=== PATIENT | female | born 1975 | race American Indian/Alaskan Native ===

== ENCOUNTER → 2017-11-08 14:55 | Emergency (ER) | payer SELFPAY | END | disposition left against medical advice (07) | LOC: ED 14:55 → MERGE 14:55 | DX: Z02.89 Encounter for other administrative examinations (principal); R10.9 Unspecified abdominal pain ==

== ENCOUNTER 2018-07-08 07:03 | Emergency (ER) | payer OTHER ==
[2018-07-08 07:31] VITALS: BMI 30.7
[2018-07-08 07:37] VITALS: RESP 18
[2018-07-08 07:38] VITALS: BP 122/81; PULSE 62; TEMP 98; O2SAT 100
--- NOTE | 2018-07-08 07:43 | ED PDOC ---
Arrival/HPI - General Historian: Patient - History of Present Illness Narrative History of Present Illness (Text): 07/08/18 07:36 43 year old f with a PMh of multiple pneumothorax (last 2013), anemia, endometriosis, and asthma presents to the emergency department complaining of s hortness of breath since yesterday with right greater than left chest and back pain. Patient recalls that this pain feel similar to the last time she was diagnosed with pneumothorax. Patient denies having a URI or any fevers, chills, headache, dizziness, cough, abdominal pain, nausea, vomiting, diarrhea, neck pain, or any other complaint. Time/Duration: 24 hours Symptom Onset: Sudden Symptom Course: Unchanged Activities at Onset: Light Context: Home Associated Symptoms (Text): 07/08/18 07:57 Patient reports right greater than left chest and back pain since yesterday similar to previous pneumothorax. Patient reports she has had multiple previous pneumothoraces. No dyspnea, but rather pain. No abdominal pain nausea vomiting or diarrhea. No cough congestion or URI. Reports that this is always occurred around the time of her menstrual cycle. History of endometriosis. She just finished her cycle. Past Medical History - Provider Review Nursing Documentation Reviewed: Yes - Infectious Disease Hx of Infectious Diseases: None - Pulmonary Hx Asthma: Yes - Hematological/Oncological Hx Anemia: Yes - Genitourinary/Gynecological Hx Genitourinary Disorders: Yes Other/Comment: endometriosis, ovarian cyst - Psychiatric Hx Substance Use: No - Surgical History Other/Comment: hx of pneumothorax with chest tube insertion. pelvic surgery sec to nedometriosis - Anesthesia Hx Anesthesia: Yes Hx Anesthesia Reactions: No Family/Social History - Physician Review Nursing Documentation Reviewed: Yes Family/Social History: No Known Family HX Smoking Status: Never Smoked Hx Alcohol Use: No Hx Substance Use: No Allergies/Home Meds Allergies/Adverse Reactions: Allergies hydromorphone HCl [From Dilaudid] Allergy (Mild, Verified 07/08/18 07:37) ITCHING Review of Systems - Physician Review All systems were reviewed & negative as marked: Yes - Review of Systems Constitutional: absent: Fatigue, Fevers Respiratory: SOB. absent: Cough, Sputum, Wheezing Cardiovascular: Chest Pain (right greater than left pain). absent: Palpitations, Edema, Syncope Gastrointestinal: absent: Abdominal Pain, Diarrhea, Nausea, Vomiting Musculoskeletal: Back Pain (right greater than left back pain. ) Neurological: absent: Headache, Dizziness Physical Exam Vital Signs Reviewed: Yes Temperature: Afebrile Blood Pressure: Normal Pulse: Regular Respiratory Rate: Normal Appearance: Positive for: Well-Appearing Mental Status: Positive for: Alert and Oriented X 3 - Systems Exam Head: Present: Atraumatic, Normocephalic Pupils: Present: PERRL Extroacular Muscles: Present: EOMI Conjunctiva: Present: Normal Ears: Present: NORMAL TM, Normal Canal. No: Erythema, TM Bulging Mouth: Present: Moist Mucous Membranes Pharnyx: No: ERYTHEMA, EXUDATE, TONSILS ENLARGED Neck: Present: Normal Range of Motion Respiratory/Chest: Present: Clear to Auscultation, Good Air Exchange. No: Respiratory Distress, Accessory Muscle Use, Wheezes, Rales, Retracting, Rhonchi, Tender to Palpation Cardiovascular: Present: Regular Rate and Rhythm, Normal S1, S2. No: Murmurs Abdomen: Present: Scars (Midline scar), Other (Right flank Scar). No: Tende rness, Distention, Peritoneal Signs Back: Present: Normal Inspection Upper Extremity: Present: Normal Inspection. No: Cyanosis, Edema Lower Extremity: Present: Normal Inspection. No: Edema, CALF TENDERNESS, Swelling Neurological: Present: GCS=15, CN II-XII Intact, Speech Normal, Motor Func Grossly Intact Skin: Present: Warm, Dry, Normal Color. No: Rashes Psychiatric: Present: Alert, Oriented x 3, Normal Insight, Normal Concentration Medical Decision Making ED Course and Treatment: 07/08/18 07:47 Impression: 43 year old f presents to the emergency department complaining of shortness of breath since yesterday with right greater than left chest and back pain. Plan: --EKG --CXR -- Reassess and disposition Prior Visits: Notes and results from previous visits were reviewed. Progress Notes: 07/08/18 07:59 EKG shows normal sinus rhythm rate rate approximately [address] or T wave changes. - RAD Interpretation Radiology Orders: Chest 2 view shows no infiltrate effusion cardiomegaly or pneumothorax. Certified Athletic Trainer: ED Physician - PA / [employer] / Resident Statement MD/DO has reviewed & agrees with the documentation as recorded. - Scribe Statement The provider has reviewed the documentation as recorded by the Brian Clark All medical record entries made by the Scribe were at my direction and personally dictated by me. I have reviewed the chart and agree that the record accurately reflects my personal performance of the history, physical exam, medical decision making, and the department course for this patient. I have also personally directed, reviewed, and agree with the discharge instructions and disposition. Disposition/Present on Arrival - Present on Arrival Any Indicators Present on Arrival: No History of DVT/PE: No History of Uncontrolled Diabetes: No Urinary Catheter: No History of Decub. Ulcer: No - Disposition Have Diagnosis and Disposition been Completed?: Yes Diagnosis: Dysmenorrhea, Endometriosis, Chest pain Disposition: HOME/ ROUTINE Disposition Time: 09:06 Patient Plan: Discharge Condition: GOOD Discharge Instructions (ExitCare): Chest Pain (ED), Endometriosis, Menstrual Cramps Prescriptions: Naproxen [Naprosyn] 500 mg PO BID #14 tab Forms: WORK NOTE
--- NOTE | 2018-07-08 09:45 | RAD ---
Date of service: 07/08/2018 HISTORY: INSP/EXP R/O Pneumothorax COMPARISON: No prior. TECHNIQUE: Chest PA and lateral FINDINGS: LUNGS: No active pulmonary disease. PLEURA: No significant pleural effusion identified. No pneumothorax apparent. CARDIOVASCULAR: No aortic atherosclerotic calcification present. Normal cardiac size. No pulmonary vascular congestion. OSSEOUS STRUCTURES: No significant abnormalities. VISUALIZED UPPER ABDOMEN: Normal. OTHER FINDINGS: None. IMPRESSION: No active disease.
--- NOTE | 2018-07-08 10:36 | CARD ---
APPROVED REPORT Date of service: 07/08/2018 EKG Measurement Heart [id number] NM [id number] <Conclusion> Sinus bradycardia Otherwise normal ECG
== END 2018-07-08 09:32 | disposition home or self-care (01) ==
LOC: ED 07:03
DX: R07.9 Chest pain, unspecified (principal); N80.9 Endometriosis, unspecified; N94.6 Dysmenorrhea, unspecified; J45.909 Unspecified asthma, uncomplicated; D64.9 Anemia, unspecified